=== PATIENT | male | born 1960 | race Caucasian/White ===

== ENCOUNTER 2019-12-07 05:23 | Emergency (ER) | payer MEDICAID, SELFPAY ==
[~2019-12-07] VITALS: Ht 180.3 cm; Wt 82.6 kg
--- NOTE | 2019-12-07 05:40 | NUR ---
PT REPORTS RIGHT ARM PAIN FOR X1 YEAR, REPORTS WORSENING PAIN. PT REPORTS HAVING TORN LIGAMENTS X1 YEAR AGO, HAS SHOULDER SURGERY. DENIES NECK OR CHEST PAIN, DENIES OTHER C/O AT THIS TIME. PT CONNECTED TO MONITORING, CALL LIGHT WITHIN REACH, ALL SAFETY MEASURES IN PLACE.
[2019-12-07] MEDS ORDERED: LISI-167 PO (05:47)
[2019-12-07] MEDS ORDERED: NAPR1TAB25 PO (05:47)
[2019-12-07] MEDS ORDERED: SIMV40TA3 PO (05:47)
[2019-12-07] MEDS ORDERED: INSU100V13 SC (05:47)
[2019-12-07] MEDS ORDERED: HYDROcodone/APAP 5/325 TABLET ONE ×2 (05:50→05:51)
[2019-12-07] MEDS ORDERED: KETOROLAC 30 MG/1 ML ONE (05:50)
--- NOTE | 2019-12-07 05:54 | NUR ---
PT TO IMAGING AT THIS TIME
[2019-12-07] MEDS ORDERED: KETOROLAC 30 MG/1 ML IM ONE (06:00)
[2019-12-07] MEDS ORDERED: HYDROcodone/APAP 5/325 TABLET PO ONE (06:00)
[2019-12-07 06:12] VITALS: BP 136/98
--- NOTE | 2019-12-07 06:51 | NUR ---
REPORT GIVEN TO LEIDY WHITTAKER.
== END 2019-12-07 07:34 | disposition home or self-care (01) ==
LOC: ED 07:28
DX: M25.511 Pain in right shoulder (principal); M25.521 Pain in right elbow; G89.29 Other chronic pain; J44.9 Chronic obstructive pulmonary disease, unspecified; E11.9 Type 2 diabetes mellitus without complications; Z87.891 Personal history of nicotine dependence
CPT/HCPCS: 73030; 73080; 96372; 99283; J1885

== ENCOUNTER 2020-10-08 16:53 | Emergency (ER) | payer MEDICAID ==
[~2020-10-08] VITALS: Ht 180.3 cm; Wt 67.9 kg
[~2020-10-08 16:53] MED LIST: INSU100V13 SC; LISI-167 PO; NAPR1TAB25 PO; SIMV40TA20 PO
[2020-10-08] MEDS ORDERED: SODIUM CHLORIDE FLUSH 10ML SYR IVF ONE (18:00)
[2020-10-08] MEDS ORDERED: SODIUM CHLORIDE 0.9% 1,000ML IVBOLUS ONE (18:00)
[2020-10-08 18:07] LABS: BASOPHILS % (AUTO) 1 % (0-1); EOSINOPHILS % (AUTO) 1 % (1-7); LYMPHOCYTES % (AUTO) 24 % (22-44); MEAN CORPUSCULAR HEMOGLOBIN 30.7 pg (27.5-34.5); MEAN CORPUSCULAR HGB CONC 34.4 g/dL (33.2-36.2); MEAN PLATELET VOLUME 8.9 fL (7.4-10.4); MONOCYTES % (AUTO) 12 % (2-9); NEUTROPHILS % (AUTO) 63 % (42-75); PLATELET COUNT 335 x10^3/uL (130-400); RED BLOOD COUNT 5.11 x10^6/uL (4.38-5.82); RED CELL DISTRIBUTION WIDTH 13.6 % (9.4-14.8)
[2020-10-08 18:09] LABS: MD NO
--- NOTE | 2020-10-08 18:13 | NUR ---
PT REPORTS HE IS A DIABETIC AND HAS NOT USED INSULIN FOR ABOUT 2 WEEKS, C/O BURNING SENSATION ON FINGERS. PT PLACED ON VITALS MONITORS. CALL LIGHT WITHIN REACH.
[2020-10-08 18:17] LABS: ANION GAP 5 mmol/L (5-15); CALCIUM 9.1 mg/dL (8.5-10.1); CHLORIDE 94 mmol/L (98-107); CREATININE 1.09 mg/dL (0.7-1.3)
[2020-10-08 18:27] LABS: MICROSCOPIC AUTO
[2020-10-08 18:45] VITALS: BP 110/77
--- NOTE | 2020-10-08 18:58 | NUR ---
REPORT TO KAYLA FORBES.
== END 2020-10-08 19:58 | disposition home or self-care (01) ==
LOC: ED 18:20
DX: R53.1 Weakness (principal); H53.9 Unspecified visual disturbance; I10 Essential (primary) hypertension; E11.65 Type 2 diabetes mellitus with hyperglycemia; Z59.0 Homelessness; Z91.14 Patient's other noncompliance with medication regimen
CPT/HCPCS: 36415; 80048; 81001; 82962; 85025; 99283

== ENCOUNTER 2021-02-24 02:06 | Inpatient (IN) | payer MEDICAID ==
[~2021-02-24] VITALS: Ht 177.8 cm; Wt 79.8 kg
--- NOTE | 2021-02-24 02:18 | NUR ---
EKG initially documented under incorrect user.
--- NOTE | 2021-02-24 02:19 | NUR ---
Patient BIBA from [facility] for unresponsiveness. Per EMS, it was reported that patient was there for approx 30 minutes and was "nodding off." Upon EMS arrival, patient was unarousable. BGL was 39. EMS admin D10 which increased the BGL to 120. Patient became responsive to pain. Rodrigo arrived at hospital; states patient has a hx of diabetes. He injects cocaine often; unsure of any other drugs. Denies alcohol use. Patient is responsive to pain only. Respirations even and unlabored.
--- NOTE | 2021-02-24 02:25 | NUR ---
Patient skin diaphoretic .
[2021-02-24 02:36] LABS: BASOPHILS % (AUTO) 1 % (0-1); EOSINOPHILS % (AUTO) 4 % (1-7); LYMPHOCYTES % (AUTO) 40 % (22-44); MEAN CORPUSCULAR HEMOGLOBIN 29.9 pg (27.5-34.5); MEAN CORPUSCULAR HGB CONC 33.4 g/dL (33.2-36.2); MEAN PLATELET VOLUME 7.6 fL (7.4-10.4); MONOCYTES % (AUTO) 11 % (2-9); NEUTROPHILS % (AUTO) 44 % (42-75); PLATELET COUNT 245 x10^3/uL (130-400); RED BLOOD COUNT 4.57 x10^6/uL (4.38-5.82); RED CELL DISTRIBUTION WIDTH 14.9 % (9.4-14.8)
[2021-02-24 02:48] LABS: ALANINE AMINOTRANSFERASE 96 U/L (12-78); ALBUMIN 3.5 g/dL (3.4-5.0); ANION GAP 5 mmol/L (5-15); CALCIUM 8.7 mg/dL (8.5-10.1); CHLORIDE 110 mmol/L (98-107); CREATININE 0.63 mg/dL (0.7-1.3)
[2021-02-24 02:52] LABS: ALKALINE PHOSPHATASE 80 U/L (45-117); BILIRUBIN,TOTAL 0.6 mg/dL (0.2-1.0); TROPONIN I < 0.015 ng/mL (0.000-0.045)
[2021-02-24] MEDS ORDERED: DEXTROSE 50%, 50ML SYRINGE ONE (02:56)
[2021-02-24 02:57] LABS: MD NO
[2021-02-24] MEDS ORDERED: DEXTROSE 50%, 50ML SYRINGE IVPush ONE (03:00)
--- NOTE | 2021-02-24 03:00 | NUR ---
Patient BS via labs was 53. Admin D50 per mar.
--- NOTE | 2021-02-24 03:48 | NUR ---
Straight cath performed; urine sent to lab. Patient skin improved. Diaphoresis resolved.
--- NOTE | 2021-02-24 03:55 | NUR ---
Vy Parekh -[facility] [phone]
[2021-02-24 04:16] LABS: MICROSCOPIC NOT IND
[2021-02-24 04:28] LABS: AMPHETAMINE SCREEN, URINE Positive (Negative); BARBITURATE SCREEN, URINE Negative (Negative); BENZODIAZEPINE SCREEN, URINE Negative (Negative); CANNABINOID SCREEN, URINE Negative (Negative); COCAINE SCREEN, URINE Negative (Negative); METHADONE SCREEN, URINE Negative (Negative); OPIATE SCREEN, URINE Negative (Negative)
--- NOTE | 2021-02-24 04:28 | NUR ---
Patient moves to painful and verbal stimuli but does not respond or open eyes. BGL continues to decrease.
[2021-02-24] MEDS ORDERED: ACETAMINOPHEN 325 MG TABLET PO PRN (04:30)
[2021-02-24] MEDS ORDERED: DEXTROSE 4 GM TAB.CHEW PO PRN (04:30)
[2021-02-24] MEDS ORDERED: DEXTROSE 50%, 50ML SYRINGE IVPush PRN (04:30)
[2021-02-24] MEDS ORDERED: D5%-0.45% NACL 500 ML IV SCH (04:30)
[2021-02-24] MEDS ORDERED: GLUCAGON 1 MG IM PRN (04:30)
[2021-02-24] MEDS ORDERED: ONDANSETRON ODT 4 MG PO PRN (04:30)
--- NOTE | 2021-02-24 05:56 | NUR ---
Report given to LEIDY Lorenz. Patient to be transferred to room 485.
[2021-02-24 06:19] VITALS: BP 125/83
[2021-02-24 08:51] VITALS: BP 133/87
[2021-02-24] MEDS ORDERED: FAMOTIDINE 20 MG TABLET PO SCH (09:00)
[2021-02-24] MEDS ORDERED: SODIUM CHLORIDE FLUSH 10ML SYR IVF SCH (09:00)
[2021-02-24 10:21] VITALS: BP 133/81
[2021-02-24] MEDS ORDERED: NICOTINE 14MG/24 HR PATCH.TD24 TD SCH (11:30)
[2021-02-24] MEDS ORDERED: D5%-0.45% NACL 1,000 ML IV SCH (12:00)
[2021-02-24 13:59] VITALS: BP 131/79
[2021-02-24] MEDS ORDERED: OLAN10TA9 PO (15:02)
[2021-02-24] MEDS ORDERED: MELO15TA24 PO (15:06)
[2021-02-24] MEDS ORDERED: GABA-827 PO (15:06)
[2021-02-24] MEDS ORDERED: APIX5TAB PO (15:06)
[2021-02-24] MEDS ORDERED: GABAPENTIN 400 MG CAPSULE PO SCH (16:00)
[2021-02-24] MEDS ORDERED: APIXABAN 5 MG TABLET PO SCH (21:00)
[2021-02-24] MEDS ORDERED: SIMVASTATIN 40 MG TABLET PO SCH (21:00)
[2021-02-24] MEDS ORDERED: OLANZAPINE 10 MG TABLET PO SCH (21:00)
[2021-02-25] MEDS ORDERED: LISINOPRIL 40 MG TABLET PO SCH (09:00)
== END 2021-02-24 18:29 | disposition home or self-care (01) | DRG 93 ==
LOC: ED 02:36 → SUATTDRO 04:15 → EDIP 04:15 → 4EST 06:08
PROVIDERS: ATTEND Hospitalist
PROC: 0T9B70Z Drainage of Bladder with Drainage Device, Via Natural or Artificial Opening (ICD-10-PCS; principal; 2021-02-24)
DX: G92 Toxic encephalopathy (principal); E11.649 Type 2 diabetes mellitus with hypoglycemia without coma; E78.5 Hyperlipidemia, unspecified; F14.10 Cocaine abuse, uncomplicated; F15.10 Other stimulant abuse, uncomplicated; I10 Essential (primary) hypertension; J44.9 Chronic obstructive pulmonary disease, unspecified; Z63.8 Other specified problems related to primary support group; Z79.01 Long term (current) use of anticoagulants
CPT/HCPCS: 36415; 80053; 80307; 80320; 81003; 82962; 83036; 84484; 85025; 93005; G0378; G0480

== ENCOUNTER 2021-03-24 18:27 | Emergency (ER) | payer MEDICAID ==
[~2021-03-24] VITALS: Ht 177.8 cm; Wt 82.0 kg
[~2021-03-24 18:27] MED LIST changes: +APIX5TAB PO; +GABA-827 PO; +MELO15TA24 PO; +OLAN10TA9 PO
[2021-03-24 19:14] LABS: BASOPHILS % (AUTO) 1 % (0-1); EOSINOPHILS % (AUTO) 1 % (1-7); LYMPHOCYTES % (AUTO) 17 % (22-44); MEAN CORPUSCULAR HEMOGLOBIN 29.6 pg (27.5-34.5); MEAN CORPUSCULAR HGB CONC 33.9 g/dL (33.2-36.2); MONOCYTES % (AUTO) 9 % (2-9); NEUTROPHILS % (AUTO) 72 % (42-75); PLATELET COUNT 249 x10^3/uL (130-400); RED BLOOD COUNT 5.16 x10^6/uL (4.38-5.82); RED CELL DISTRIBUTION WIDTH 14.7 % (9.4-14.8)
[2021-03-24 19:20] LABS: ALBUMIN 3.3 g/dL (3.4-5.0); ANION GAP 7 mmol/L (5-15); CALCIUM 8.5 mg/dL (8.5-10.1); CHLORIDE 106 mmol/L (98-107)
[2021-03-24 19:22] LABS: CREATININE 0.69 mg/dL (0.7-1.3)
[2021-03-24 19:36] LABS: MD SCAN
[2021-03-24 20:19] VITALS: BP 144/100
--- NOTE | 2021-03-24 20:20 | NUR ---
PT AMBULTED TO ROOM FROM LOBBY. PT CO PAIN IN BILATERAL HANDS AND FEET R/T NEUROPATHY. PT STATED THAT HE "LOST" HIS INSULIN AND HIS GABAPENTIN THIS WEEK. PT HAS WOUND ON LEFT THUMB THAT REQUIRED SURGERY IN DECEMBER AND CO SEVERE PAIN. REDNESS AND SWELLING NOTED TO LEFT FOREARM AND LEFT FOOT. PT DENIES ANY FEVER, N/V/D, CP OR SOB.
[2021-03-24] MEDS ORDERED: DOXYCYCLINE 100MG TABLET PO ONE (20:30)
[2021-03-24] MEDS ORDERED: NAPROXEN 500 MG TABLET PO ONE (20:30)
[2021-03-24] MEDS ORDERED: NAPROXEN 500 MG TABLET ONE (20:31)
[2021-03-24] MEDS ORDERED: DOXYCYCLINE 100MG TABLET ONE (20:32)
[2021-03-24] MEDS ORDERED: NEOSPORIN OINT. PKT 1 PACKET ONE (21:26)
== END 2021-03-24 21:49 | disposition home or self-care (01) ==
LOC: ED 18:57
DX: L03.012 Cellulitis of left finger (principal); R00.0 Tachycardia, unspecified; I10 Essential (primary) hypertension; E11.9 Type 2 diabetes mellitus without complications; J44.9 Chronic obstructive pulmonary disease, unspecified; F17.200 Nicotine dependence, unspecified, uncomplicated
CPT/HCPCS: 36415; 80048; 82040; 85025; 93005; 99285

== ENCOUNTER 2021-04-09 02:11 | Emergency (ER) | payer MEDICAID ==
[~2021-04-09] VITALS: Ht 177.8 cm; Wt 80.1 kg
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
[2021-04-09 02:54] LABS: BASOPHILS % (AUTO) 1 % (0-1); EOSINOPHILS % (AUTO) 4 % (1-7); LYMPHOCYTES % (AUTO) 30 % (22-44); MEAN CORPUSCULAR HEMOGLOBIN 29.7 pg (27.5-34.5); MEAN PLATELET VOLUME 7.3 fL (7.4-10.4); MONOCYTES % (AUTO) 9 % (2-9); NEUTROPHILS % (AUTO) 56 % (42-75); PLATELET COUNT 380 x10^3/uL (130-400); RED BLOOD COUNT 5.03 x10^6/uL (4.38-5.82); RED CELL DISTRIBUTION WIDTH 14.9 % (9.4-14.8)
[2021-04-09 02:55] LABS: MD NO
--- NOTE | 2021-04-09 03:03 | NUR ---
REPORT TO CHARMAINE ROMEO RN
[2021-04-09 03:04] LABS: SALICYLATE LEVEL < 1.7 mg/dL (2.8-20.0)
--- NOTE | 2021-04-09 03:25 | NUR ---
report from maria del carmen. pt resting on [facility]. room secured. sitter at doorway for frequent monitoring. pt made aware of need for urine.
[2021-04-09 04:50] LABS: AMPHETAMINE SCREEN, URINE Positive (Negative); BARBITURATE SCREEN, URINE Negative (Negative); BENZODIAZEPINE SCREEN, URINE Negative (Negative); CANNABINOID SCREEN, URINE Positive (Negative); COCAINE SCREEN, URINE Negative (Negative); METHADONE SCREEN, URINE Negative (Negative); OPIATE SCREEN, URINE Negative (Negative)
--- NOTE | 2021-04-09 05:12 | NUR ---
PT RESTING ON GURNEY. RESPIRATIONS EVEN AND UNLABORED. PT SLEEPING/WATCHING TV. SITTER AT DOORWAY FOR FREQUENT CHECKS.
[2021-04-09 05:38] LABS: ALANINE AMINOTRANSFERASE 90 U/L (12-78); ALBUMIN 3.3 g/dL (3.4-5.0); ANION GAP 11 mmol/L (5-15); CALCIUM 8.8 mg/dL (8.5-10.1); CHLORIDE 106 mmol/L (98-107)
[2021-04-09 05:40] LABS: ALKALINE PHOSPHATASE 76 U/L (45-117); BILIRUBIN,TOTAL 0.5 mg/dL (0.2-1.0); TOTAL PROTEIN 7.2 g/dL (6.4-8.2)
--- NOTE | 2021-04-09 06:54 | NUR ---
REPORT TO LEIDY ARMSTRONG
--- NOTE | 2021-04-09 07:09 | NUR ---
REPORT FROM JOHNY, ASSUME CARE OF PT. PT RESTING QUIETLY, NAD. SITTER AT DOORWAY.
--- NOTE | 2021-04-09 08:23 | NUR ---
BREAKFAST TRAY PROVIDED. SITTER AT DOORWAY. CONTINUE TO AWAIT TELEPSYCH ASSESSMENT.
--- NOTE | 2021-04-09 09:25 | NUR ---
PT SLEEPING, NAD, SITTER AT DOORWAY.
--- NOTE | 2021-04-09 09:52 | NUR ---
PSYCH PROGRAM TECHNICIAN TO SEE.
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
[2021-04-09] MEDS ORDERED: GABA600T7 PO (10:52)
[2021-04-09] MEDS ORDERED: INSU100C SQ-INSULIN (10:52)
[2021-04-09] MEDS ORDERED: CEPH-376 PO (10:52)
[2021-04-09] MEDS ORDERED: INSU100V8 SQ (10:52)
[2021-04-09] MEDS ORDERED: OLANZAPINE 5 MG TABLET PO SCH (11:00)
[2021-04-09] MEDS ORDERED: NICOTINE 14MG/24 HR PATCH.TD24 TD PRN (11:00)
[2021-04-09] MEDS ORDERED: NICOTINE 14MG/24 HR PATCH.TD24 ONE (11:16)
[2021-04-09] MEDS ORDERED: OLANZAPINE 5 MG TABLET ONE (11:16)
--- NOTE | 2021-04-09 11:22 | NUR ---
MEDS GIVEN PER EMAR. PT BACK TO SLEEP, NAD, SITTER AT DOORWAY
[2021-04-09] MEDS ORDERED: INSULIN GLARGINE 100 UNITS/ML, PEN SQ-INSULIN SCH (11:30)
--- NOTE | 2021-04-09 12:40 | NUR ---
ANEUDY CEBALLOS WALKED TO LAB.
--- NOTE | 2021-04-09 12:51 | NUR ---
FS 151, MEAL TRAY PROVIDED. PT STATES HE HAS BEEN OFF INSULIN FOR MONTHS. INSULIN PEN ORDERED FROM PHARMACY. SITTER AT DOORWAY.
--- NOTE | 2021-04-09 12:58 | NUR ---
INSULIN PEN NOT REQUESTED FROM PHARM AFTER REVIEW OF ORDER. LANTUS TO BE TAKEN AT HS. HUMALOG 5 UNITS TO BE TAKEN AC.
--- NOTE | 2021-04-09 13:32 | NUR ---
PT RESTING CALMLY IN BED AT THIS TIME. SITTER AT DOOR FOR FREQUENT OBS.
--- NOTE | 2021-04-09 14:48 | NUR ---
REPORT GIVEN TO MISAEL FORBES FOR ROOM 380. INTERACTIVE DIGITAL MEDIA SPECIALIST OUTSIDE DOOR. PT RESTING CALMLY IN BED.
[2021-04-09 14:58] VITALS: BP 130/89
[2021-04-09] MEDS ORDERED: INSULIN LISPRO 100 UNITS/ML, PEN SQ-INSULIN SCH (16:00)
[2021-04-09] MEDS ORDERED: CEPHALEXIN 500 MG CAPSULE PO SCH (16:00)
[2021-04-09] MEDS ORDERED: GABAPENTIN 400 MG CAPSULE PO SCH (16:00)
== END 2021-04-09 15:00 ==
LOC: ED 03:51
DX: R45.851 Suicidal ideations (principal); F32.1 Major depressive disorder, single episode, moderate; F12.10 Cannabis abuse, uncomplicated; F15.10 Other stimulant abuse, uncomplicated; Z20.822 Contact with and (suspected) exposure to COVID-19; J44.9 Chronic obstructive pulmonary disease, unspecified; E11.65 Type 2 diabetes mellitus with hyperglycemia; I10 Essential (primary) hypertension; F17.210 Nicotine dependence, cigarettes, uncomplicated
CPT/HCPCS: 36415; 80053; 80299; 80307; 80320; 80329; 82962; 85025; 87426; 99285; G0480

== ENCOUNTER 2021-04-09 13:44 | Inpatient (IN) | payer MEDICAID ==
[~2021-04-09] VITALS: Ht 177.8 cm; Wt 75.5 kg
[~2021-04-09 13:44] MED LIST changes: +CEPH-376 PO; +GABA600T7 PO; +INSU100C SQ-INSULIN; +INSU100V8 SQ
[2021-04-09] MEDS ORDERED: BISACODYL 10 MG SUPP PR PRN (15:30)
[2021-04-09] MEDS ORDERED: DOCUSATE 100 MG CAPSULE PO PRN (15:30)
[2021-04-09] MEDS ORDERED: POLYETHYLENE GLYCOL 17 GM PACKET PO PRN (15:30)
[2021-04-09 16:00] VITALS: BP 117/75
[2021-04-09] MEDS: INSULIN LISPRO 100 UNITS/ML, PEN SQ-INSULIN SCH ×2 (19:00→20:23)
[2021-04-09] MEDS: INSULIN GLARGINE 100 UNITS/ML, PEN SQ-INSULIN SCH ×2 (19:00→21:00)
[2021-04-09 19:22] LABS: MICROSCOPIC NOT IND
[2021-04-09 19:27] VITALS: BP 120/75
[2021-04-09] MEDS: CEPHALEXIN 500 MG CAPSULE PO SCH (20:28)
[2021-04-09] MEDS: GABAPENTIN 400 MG CAPSULE PO SCH (20:28)
[2021-04-10] MEDS: CEPHALEXIN 500 MG CAPSULE PO SCH ×2 (05:37→11:27)
[2021-04-10 06:17] LABS: CHOL/HDL RATIO 4.1; FREE T4 (FREE THYROXINE) 1.18 ng/dL (0.76-1.46); LDL/HDL RATIO 2.7 (0.5-3.0)
[2021-04-10 07:24] VITALS: BP 119/74
[2021-04-10] MEDS: INSULIN LISPRO 100 UNITS/ML, PEN SQ-INSULIN SCH ×7 (08:00→21:00)
[2021-04-10] MEDS: NICOTINE 7 MG/24 HR PATCH.TD24 TD SCH (08:01)
[2021-04-10] MEDS: GABAPENTIN 400 MG CAPSULE PO SCH ×3 (08:01→21:02)
[2021-04-10] MEDS: ACETAMINOPHEN 325 MG TABLET PO PRN (11:27)
[2021-04-10] MEDS: AMOXICILLIN/CLAV 875-125MG TABLET PO SCH ×2 (12:27→21:02)
[2021-04-10] MEDS: DULOXETINE 30 MG CAPSULE.DR PO SCH (16:26)
[2021-04-10 19:35] VITALS: BP 124/81
[2021-04-10] MEDS ORDERED: TRAZODONE 50MG TABLET PO PRN (21:00)
[2021-04-10] MEDS: INSULIN GLARGINE 100 UNITS/ML, PEN SQ-INSULIN SCH (21:05)
[2021-04-11 07:28] VITALS: BP 121/77
[2021-04-11] MEDS: INSULIN LISPRO 100 UNITS/ML, PEN SQ-INSULIN SCH ×7 (07:51→21:00)
[2021-04-11] MEDS: NICOTINE 7 MG/24 HR PATCH.TD24 TD SCH (07:53)
[2021-04-11] MEDS: ONDANSETRON ODT 4 MG PO PRN (07:56)
[2021-04-11] MEDS: DULOXETINE 30 MG CAPSULE.DR PO SCH ×2 (08:52→20:20)
[2021-04-11] MEDS: ACETAMINOPHEN 325 MG TABLET PO PRN (08:52)
[2021-04-11] MEDS: GABAPENTIN 400 MG CAPSULE PO SCH ×3 (08:53→20:20)
[2021-04-11] MEDS: AMOXICILLIN/CLAV 875-125MG TABLET PO SCH ×2 (08:53→20:20)
[2021-04-11 19:24] VITALS: BP 117/72
[2021-04-11] MEDS: INSULIN GLARGINE 100 UNITS/ML, PEN SQ-INSULIN SCH (20:21)
[2021-04-11] MEDS: HYDROXYZINE PAMOATE 50MG CAP PO PRN (20:29)
[2021-04-12] MEDS: INSULIN LISPRO 100 UNITS/ML, PEN SQ-INSULIN SCH ×7 (07:00→20:06)
[2021-04-12 07:17] VITALS: BP 113/74
[2021-04-12] MEDS: AMOXICILLIN/CLAV 875-125MG TABLET PO SCH ×2 (08:28→20:04)
[2021-04-12] MEDS: ACETAMINOPHEN 325 MG TABLET PO PRN ×2 (08:28→20:04)
[2021-04-12] MEDS: DULOXETINE 30 MG CAPSULE.DR PO SCH ×2 (08:28→20:04)
[2021-04-12] MEDS: GABAPENTIN 400 MG CAPSULE PO SCH ×3 (08:28→20:04)
[2021-04-12] MEDS: HYDROXYZINE PAMOATE 50MG CAP PO PRN (08:28)
[2021-04-12] MEDS: NICOTINE 7 MG/24 HR PATCH.TD24 TD SCH (08:29)
[2021-04-12] MEDS: CARIPRAZINE 1.5 MG CAP PO SCH (14:44)
[2021-04-12] MEDS: LORazepam 0.5MG TABLET PO PRN (14:45)
[2021-04-12 19:15] VITALS: BP 115/74
[2021-04-12] MEDS ORDERED: GABAPENTIN 100 MG CAPSULE ONE (19:59)
[2021-04-12] MEDS: INSULIN GLARGINE 100 UNITS/ML, PEN SQ-INSULIN SCH (20:06)
[2021-04-13] MEDS: ONDANSETRON ODT 4 MG PO PRN (04:59)
[2021-04-13] MEDS: LORazepam 0.5MG TABLET PO PRN ×2 (04:59→16:37)
[2021-04-13 07:16] VITALS: BP 134/87
[2021-04-13] MEDS: DULOXETINE 30 MG CAPSULE.DR PO SCH ×2 (08:05→21:31)
[2021-04-13] MEDS: ACETAMINOPHEN 325 MG TABLET PO PRN (08:05)
[2021-04-13] MEDS: GABAPENTIN 400 MG CAPSULE PO SCH ×3 (08:05→21:30)
[2021-04-13] MEDS: NICOTINE 7 MG/24 HR PATCH.TD24 TD SCH (08:05)
[2021-04-13] MEDS: AMOXICILLIN/CLAV 875-125MG TABLET PO SCH ×2 (08:05→21:30)
[2021-04-13] MEDS: INSULIN LISPRO 100 UNITS/ML, PEN SQ-INSULIN SCH ×7 (08:06→21:25)
[2021-04-13] MEDS: CARIPRAZINE 1.5 MG CAP PO SCH (08:06)
[2021-04-13 19:51] VITALS: BP 120/72
[2021-04-13] MEDS: INSULIN GLARGINE 100 UNITS/ML, PEN SQ-INSULIN SCH (21:26)
[2021-04-13] MEDS: TRAZODONE 100MG TABLET PO SCH (21:31)
[2021-04-14 07:11] VITALS: BP 119/83
[2021-04-14] MEDS: ACETAMINOPHEN 325 MG TABLET PO PRN (08:06)
[2021-04-14] MEDS: AMOXICILLIN/CLAV 875-125MG TABLET PO SCH ×2 (08:06→20:22)
[2021-04-14] MEDS: GABAPENTIN 400 MG CAPSULE PO SCH ×3 (08:07→20:23)
[2021-04-14] MEDS: DULOXETINE 30 MG CAPSULE.DR PO SCH ×2 (08:07→20:22)
[2021-04-14] MEDS: CARIPRAZINE 1.5 MG CAP PO SCH (08:07)
[2021-04-14] MEDS: INSULIN LISPRO 100 UNITS/ML, PEN SQ-INSULIN SCH ×7 (08:07→20:19)
[2021-04-14] MEDS: NICOTINE 7 MG/24 HR PATCH.TD24 TD SCH (08:08)
[2021-04-14] MEDS: LORazepam 0.5MG TABLET PO PRN (15:55)
[2021-04-14 19:25] VITALS: BP 120/80
[2021-04-14] MEDS: INSULIN GLARGINE 100 UNITS/ML, PEN SQ-INSULIN SCH (20:20)
[2021-04-14] MEDS: TRAZODONE 100MG TABLET PO SCH (20:22)
[2021-04-15] MEDS: INSULIN LISPRO 100 UNITS/ML, PEN SQ-INSULIN SCH ×7 (07:00→20:05)
[2021-04-15 07:44] VITALS: BP 117/78
[2021-04-15] MEDS: DULOXETINE 30 MG CAPSULE.DR PO SCH ×2 (08:04→20:03)
[2021-04-15] MEDS: AMOXICILLIN/CLAV 875-125MG TABLET PO SCH ×2 (08:04→20:03)
[2021-04-15] MEDS: GABAPENTIN 400 MG CAPSULE PO SCH ×3 (08:04→20:04)
[2021-04-15] MEDS: NICOTINE 7 MG/24 HR PATCH.TD24 TD SCH (08:04)
[2021-04-15] MEDS: LORazepam 0.5MG TABLET PO PRN ×2 (08:07→17:53)
[2021-04-15] MEDS: CARIPRAZINE 1.5 MG CAP PO SCH (09:30)
[2021-04-15] MEDS: HYDROXYZINE PAMOATE 50MG CAP PO PRN (14:24)
[2021-04-15] MEDS: INSULIN GLARGINE 100 UNITS/ML, PEN SQ-INSULIN SCH (20:04)
[2021-04-15 20:08] VITALS: BP 127/86
[2021-04-15] MEDS ORDERED: DOXEPIN 25 MG CAPSULE PO SCH (21:00)
[2021-04-16 07:33] VITALS: BP 130/88
[2021-04-16] MEDS: INSULIN LISPRO 100 UNITS/ML, PEN SQ-INSULIN SCH ×7 (07:57→19:59)
[2021-04-16] MEDS: NICOTINE 7 MG/24 HR PATCH.TD24 TD SCH (07:58)
[2021-04-16] MEDS: DULOXETINE 30 MG CAPSULE.DR PO SCH ×2 (07:58→19:58)
[2021-04-16] MEDS: GABAPENTIN 400 MG CAPSULE PO SCH ×3 (07:58→19:58)
[2021-04-16] MEDS: AMOXICILLIN/CLAV 875-125MG TABLET PO SCH ×2 (07:58→19:58)
[2021-04-16] MEDS: CARIPRAZINE 1.5 MG CAP PO SCH (08:04)
[2021-04-16] MEDS: HYDROXYZINE PAMOATE 50MG CAP PO PRN (12:13)
[2021-04-16] MEDS: LORazepam 0.5MG TABLET PO PRN (15:31)
[2021-04-16 19:38] VITALS: BP 120/80
[2021-04-16] MEDS: INSULIN GLARGINE 100 UNITS/ML, PEN SQ-INSULIN SCH (19:59)
[2021-04-16] MEDS: DOXEPIN 100 MG CAPSULE PO SCH (20:09)
[2021-04-17 07:24] VITALS: BP 114/81
[2021-04-17] MEDS: INSULIN LISPRO 100 UNITS/ML, PEN SQ-INSULIN SCH ×7 (08:17→20:40)
[2021-04-17] MEDS: DULOXETINE 30 MG CAPSULE.DR PO SCH ×2 (08:20→20:38)
[2021-04-17] MEDS: GABAPENTIN 400 MG CAPSULE PO SCH ×3 (08:20→20:38)
[2021-04-17] MEDS: NICOTINE 7 MG/24 HR PATCH.TD24 TD SCH (08:21)
[2021-04-17] MEDS: CARIPRAZINE 1.5 MG CAP PO SCH (08:21)
[2021-04-17] MEDS: LORazepam 0.5MG TABLET PO PRN (10:53)
[2021-04-17] MEDS: HYDROXYZINE PAMOATE 50MG CAP PO PRN (14:14)
[2021-04-17] MEDS ORDERED: LORazepam 1MG TABLET PO PRN (18:00)
[2021-04-17 19:11] VITALS: BP 129/83
[2021-04-17] MEDS: DOXEPIN 100 MG CAPSULE PO SCH (20:38)
[2021-04-17] MEDS: INSULIN GLARGINE 100 UNITS/ML, PEN SQ-INSULIN SCH (20:40)
[2021-04-18] MEDS: INSULIN LISPRO 100 UNITS/ML, PEN SQ-INSULIN SCH ×4 (07:00→11:48)
[2021-04-18 07:29] VITALS: BP 112/74
[2021-04-18] MEDS: CARIPRAZINE 1.5 MG CAP PO SCH (08:30)
[2021-04-18] MEDS: DULOXETINE 30 MG CAPSULE.DR PO SCH (08:30)
[2021-04-18] MEDS: NICOTINE 7 MG/24 HR PATCH.TD24 TD SCH (08:30)
[2021-04-18] MEDS: GABAPENTIN 400 MG CAPSULE PO SCH ×2 (08:30→15:17)
[2021-04-18] MEDS ORDERED: CARI1.5C2 PO (14:40)
[2021-04-18] MEDS ORDERED: DOXE100C PO (14:40)
[2021-04-18] MEDS ORDERED: INSU100I13 SQ-INSULIN (14:40)
[2021-04-18] MEDS ORDERED: INSU100I11 SQ-INSULIN ×2 (14:40)
[2021-04-18] MEDS ORDERED: NICO-485 TD (14:40)
[2021-04-18] MEDS ORDERED: HYDR50CA2 PO (14:40)
[2021-04-18] MEDS ORDERED: DULO30CA2 PO (14:40)
[2021-04-18] MEDS ORDERED: GABA-827 PO (14:40)
[2021-04-18] MEDS: ACETAMINOPHEN 325 MG TABLET PO PRN (15:17)
== END 2021-04-18 15:44 | disposition home or self-care (01) | DRG 885 ==
LOC: 3E 15:26
PROVIDERS: ADMIT Psychiatry & Neurology Psychosomatic Medicine; ATTEND Psychiatry & Neurology Psychosomatic Medicine
DX: F25.1 Schizoaffective disorder, depressive type (principal); F11.20 Opioid dependence, uncomplicated; F15.20 Other stimulant dependence, uncomplicated; E11.9 Type 2 diabetes mellitus without complications; E78.5 Hyperlipidemia, unspecified; F10.10 Alcohol abuse, uncomplicated; F41.9 Anxiety disorder, unspecified; G47.00 Insomnia, unspecified; G89.29 Other chronic pain; I10 Essential (primary) hypertension; F17.210 Nicotine dependence, cigarettes, uncomplicated; J44.9 Chronic obstructive pulmonary disease, unspecified; Z59.0 Homelessness; Z79.01 Long term (current) use of anticoagulants; Z79.4 Long term (current) use of insulin; Z79.899 Other long term (current) drug therapy; Z91.19 Patient's noncompliance with other medical treatment and regimen
CPT/HCPCS: 80061; 81003; 82140; 82962; 83036; 84439; 84443; 93005; Q0162; J1815

== ENCOUNTER 2021-04-20 05:15 | Emergency (ER) | payer MEDICAID ==
[~2021-04-20] VITALS: Ht 177.8 cm; Wt 76.0 kg
[~2021-04-20 05:15] MED LIST changes: +CARI1.5C2 PO; +DOXE100C PO; +DULO30CA2 PO; +HYDR50CA2 PO; +INSU100I11 SQ-INSULIN; +INSU100I13 SQ-INSULIN; +NICO-485 TD
[2021-04-20 06:03] LABS: BASOPHILS % (AUTO) 1 % (0-1); EOSINOPHILS % (AUTO) 0 % (1-7); LYMPHOCYTES % (AUTO) 26 % (22-44); MEAN CORPUSCULAR HGB CONC 34.2 g/dL (33.2-36.2); MEAN PLATELET VOLUME 7.9 fL (7.4-10.4); MONOCYTES % (AUTO) 10 % (2-9); NEUTROPHILS % (AUTO) 64 % (42-75); PLATELET COUNT 361 x10^3/uL (130-400); RED BLOOD COUNT 5.74 x10^6/uL (4.38-5.82); RED CELL DISTRIBUTION WIDTH 14.6 % (9.4-14.8)
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
[2021-04-20 06:10] LABS: ALANINE AMINOTRANSFERASE 163 U/L (12-78); ALBUMIN 4.1 g/dL (3.4-5.0); ANION GAP 14 mmol/L (5-15); CALCIUM 9.6 mg/dL (8.5-10.1); CHLORIDE 103 mmol/L (98-107); CREATININE 0.82 mg/dL (0.7-1.3)
[2021-04-20 06:12] LABS: ALKALINE PHOSPHATASE 110 U/L (45-117); BILIRUBIN,TOTAL 0.9 mg/dL (0.2-1.0); TOTAL PROTEIN 8.9 g/dL (6.4-8.2)
[2021-04-20 06:15] LABS: SALICYLATE LEVEL < 1.7 mg/dL (2.8-20.0)
--- NOTE | 2021-04-20 06:23 | NUR ---
PT AMBULATED TO BATHROOM AND BACK TO ROOM. TOLERATED WELL. RESTING IN BED AND WATCHING TV.
[2021-04-20 06:27] LABS: AMPHETAMINE SCREEN, URINE Positive (Negative); BARBITURATE SCREEN, URINE Negative (Negative); BENZODIAZEPINE SCREEN, URINE Negative (Negative); CANNABINOID SCREEN, URINE Negative (Negative); COCAINE SCREEN, URINE Negative (Negative); METHADONE SCREEN, URINE Negative (Negative); OPIATE SCREEN, URINE Negative (Negative)
--- NOTE | 2021-04-20 06:55 | NUR ---
GAVE REPORT TO TERRELL FORBES
--- NOTE | 2021-04-20 06:58 | NUR ---
I AM ASSUMING CARE OF THIS PT FROM [place] (LEIDY) AT THIS TIME. SBAR WAS EXCHANGED AT THE BEDSIDE.
--- NOTE | 2021-04-20 07:12 | NUR ---
PT SLEEPING SONOROUSLY ON AN [employer]. THERE IS NO CURRENT DISTRESS NOTED HE IS AWAITING A CONSULT FROM A PSYCHIATRIC NURSE PRACTITIONER. I WILL ORDER A BREAKFAST UPON AWAKENING.
--- NOTE | 2021-04-20 08:19 | NUR ---
BREAK RN: GIVEN BREAKFAST.
--- NOTE | 2021-04-20 08:52 | NUR ---
ASHLEY APPRECIATED. PT RESTING ON THE SIDE OF AM Daniel MELGAR WHILE AWAITING PSYCHIATRIC EVALUATION.
[2021-04-20 08:53] VITALS: BP 143/88
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
--- NOTE | 2021-04-20 10:49 | NUR ---
psychiatric nurse practicioner is at the bedside for assessment
[2021-04-20] MEDS ORDERED: DULOXETINE 30 MG CAPSULE.DR PO ONE (11:00)
[2021-04-20] MEDS ORDERED: CARIPRAZINE 3 MG CAP PO ONE (11:00)
[2021-04-20] MEDS ORDERED: GABAPENTIN 300 MG CAPSULE PO ONE ×2 (11:00→12:30)
[2021-04-20] MEDS ORDERED: GABAPENTIN 400 MG CAPSULE ONE (12:25)
[2021-04-20] MEDS ORDERED: GABAPENTIN 400 MG CAPSULE PO ONE (12:30)
== END 2021-04-20 13:09 | disposition home or self-care (01) ==
LOC: ED 05:45
DX: R45.851 Suicidal ideations (principal); F32.9 Major depressive disorder, single episode, unspecified; S90.412A Abrasion, left great toe, initial encounter; R00.0 Tachycardia, unspecified; I10 Essential (primary) hypertension; E11.65 Type 2 diabetes mellitus with hyperglycemia; J44.9 Chronic obstructive pulmonary disease, unspecified; F17.200 Nicotine dependence, unspecified, uncomplicated; Z59.0 Homelessness; X58.XXXA Exposure to other specified factors, initial encounter; Y93.89 Activity, other specified; Y92.89 Other specified places as the place of occurrence of the external cause; Y99.8 Other external cause status
CPT/HCPCS: 36415; 80053; 80299; 80307; 80320; 80329; 85025; 93005; 99284; G0480

== ENCOUNTER 2021-04-21 19:26 | Emergency (ER) | payer MEDICAID ==
[~2021-04-21] VITALS: Ht 177.8 cm; Wt 75.0 kg
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
[2021-04-21] MEDS ORDERED: HYDROcodone/APAP 5/325 TABLET ONE (19:49)
[2021-04-21] MEDS ORDERED: HYDROcodone/APAP 5/325 TABLET PO PRN (20:00)
[2021-04-21 21:12] VITALS: BP 132/75
== END 2021-04-21 21:15 | disposition home or self-care (01) ==
LOC: ED 21:00
DX: S40.012A Contusion of left shoulder, initial encounter (principal); S70.02XA Contusion of left hip, initial encounter; S40.022A Contusion of left upper arm, initial encounter; I10 Essential (primary) hypertension; E11.9 Type 2 diabetes mellitus without complications; J44.9 Chronic obstructive pulmonary disease, unspecified; W01.0XXA Fall on same level from slipping, tripping and stumbling without subsequent striking against object, initial encounter; Y93.89 Activity, other specified; Y92.410 Unspecified street and highway as the place of occurrence of the external cause; Y99.8 Other external cause status
CPT/HCPCS: 99284

== ENCOUNTER 2021-05-25 18:37 | Emergency (ER) | payer MEDICAID ==
[~2021-05-25] VITALS: Ht 177.8 cm; Wt 79.9 kg
[2021-05-25 18:50] VITALS: BP 140/77
[2021-05-25 19:31] LABS: BASOPHILS % (AUTO) 1 % (0-1); EOSINOPHILS % (AUTO) 3 % (1-7); LYMPHOCYTES % (AUTO) 31 % (22-44); MEAN CORPUSCULAR HGB CONC 33.9 g/dL (33.2-36.2); MEAN PLATELET VOLUME 7.6 fL (7.4-10.4); MONOCYTES % (AUTO) 8 % (2-9); NEUTROPHILS % (AUTO) 57 % (42-75); PLATELET COUNT 307 x10^3/uL (130-400); RED BLOOD COUNT 4.81 x10^6/uL (4.38-5.82); RED CELL DISTRIBUTION WIDTH 14.3 % (9.4-14.8)
[2021-05-25 19:43] LABS: ALANINE AMINOTRANSFERASE 43 U/L (12-78); ANION GAP 5 mmol/L (5-15); CALCIUM 8.3 mg/dL (8.5-10.1); CHLORIDE 109 mmol/L (98-107)
[2021-05-25 19:45] LABS: ALKALINE PHOSPHATASE 79 U/L (45-117); BILIRUBIN,TOTAL 0.2 mg/dL (0.2-1.0); CREATININE 0.68 mg/dL (0.7-1.3); TOTAL PROTEIN 6.7 g/dL (6.4-8.2)
[2021-05-25 19:54] LABS: SALICYLATE LEVEL < 1.7 mg/dL (2.8-20.0)
--- NOTE | 2021-05-25 20:00 | NUR ---
Pt provided with dinner.
[2021-05-25 20:15] LABS: AMPHETAMINE SCREEN, URINE Positive (Negative); BARBITURATE SCREEN, URINE Negative (Negative); BENZODIAZEPINE SCREEN, URINE Negative (Negative); CANNABINOID SCREEN, URINE Positive (Negative); COCAINE SCREEN, URINE Negative (Negative); METHADONE SCREEN, URINE Negative (Negative); OPIATE SCREEN, URINE Negative (Negative)
--- NOTE | 2021-05-25 21:00 | NUR ---
Pt sleeping, respirations even and unlabored, in view of sitter.
--- NOTE | 2021-05-25 23:58 | NUR ---
Pt d/c'd with all of belongings (1 of 1 labeled bag).
== END 2021-05-26 00:28 ==
LOC: ED 20:20 → UNDOADMIN 22:00 → 3E 22:00 → ED 05-26 00:28
DX: R45.851 Suicidal ideations (principal); Z20.822 Contact with and (suspected) exposure to COVID-19; F33.9 Major depressive disorder, recurrent, unspecified; F15.150 Other stimulant abuse with stimulant-induced psychotic disorder with delusions; F17.210 Nicotine dependence, cigarettes, uncomplicated; F12.20 Cannabis dependence, uncomplicated; Z72.9 Problem related to lifestyle, unspecified; E11.9 Type 2 diabetes mellitus without complications; J44.9 Chronic obstructive pulmonary disease, unspecified; I10 Essential (primary) hypertension
CPT/HCPCS: 36415; 80053; 80299; 80307; 80320; 80329; 82962; 85025; 87426; 99285; 99406; G0480

== ENCOUNTER 2021-05-25 23:37 | Inpatient (IN) | payer MEDICAID ==
[~2021-05-25] VITALS: Ht 177.8 cm; Wt 79.7 kg
[~2021-05-25 23:37] MED LIST changes: +OLAN10TA69 PO; -OLAN10TA9 PO
[2021-05-26] MEDS ORDERED: BISACODYL 10 MG SUPP PR PRN
[2021-05-26] MEDS ORDERED: POLYETHYLENE GLYCOL 17 GM PACKET PO PRN
[2021-05-26] MEDS ORDERED: DOCUSATE 100 MG CAPSULE PO PRN
[2021-05-26] MEDS ORDERED: ONDANSETRON ODT 4 MG PO PRN
[2021-05-26] MEDS ORDERED: GLUCAGON 1 MG IM PRN (01:00)
[2021-05-26] MEDS ORDERED: DEXTROSE 50%, 50ML SYRINGE IVPush PRN (01:00)
[2021-05-26] MEDS ORDERED: DEXTROSE 4 GM TAB.CHEW PO PRN (01:00)
[2021-05-26] MEDS: DULOXETINE 30 MG CAPSULE.DR PO SCH ×3 (01:08→17:01)
[2021-05-26] MEDS: GABAPENTIN 400 MG CAPSULE PO SCH ×4 (01:08→21:03)
[2021-05-26] MEDS: DOXEPIN 100 MG CAPSULE PO SCH ×2 (01:08→21:03)
[2021-05-26 02:10] LABS: MICROSCOPIC NOT IND
[2021-05-26 02:56] VITALS: BP 122/74
[2021-05-26 03:41] VITALS: BP 122/74
[2021-05-26] MEDS: ACETAMINOPHEN 325 MG TABLET PO PRN ×2 (03:53→21:03)
[2021-05-26] MEDS: INSULIN LISPRO 100 UNITS/ML, PEN SQ-INSULIN SCH ×4 (07:00→20:52)
[2021-05-26 07:23] VITALS: BP 134/86
[2021-05-26] MEDS: NICOTINE 7 MG/24 HR PATCH.TD24 TD SCH (08:50)
[2021-05-26] MEDS ORDERED: CARIPRAZINE 3 MG CAP PO SCH ×2 (09:00→14:00)
[2021-05-26] MEDS ORDERED: SODIUM CHLORIDE FLUSH 10ML SYR IVF SCH (09:00)
[2021-05-26] MEDS: CARIPRAZINE 3 MG CAP PO SCH (17:00)
[2021-05-26 19:34] VITALS: BP 135/90
[2021-05-26] MEDS: INSULIN GLARGINE 100 UNITS/ML, PEN SQ-INSULIN SCH (21:02)
[2021-05-26] MEDS: AMOXICILLIN/CLAV 875-125MG TABLET PO SCH (21:03)
[2021-05-27] MEDS: INSULIN LISPRO 100 UNITS/ML, PEN SQ-INSULIN SCH ×4 (07:00→20:21)
[2021-05-27 07:53] VITALS: BP 142/91
[2021-05-27] MEDS: NICOTINE 7 MG/24 HR PATCH.TD24 TD SCH (08:43)
[2021-05-27] MEDS: AMOXICILLIN/CLAV 875-125MG TABLET PO SCH ×2 (08:43→20:15)
[2021-05-27] MEDS: GABAPENTIN 400 MG CAPSULE PO SCH ×3 (08:43→20:15)
[2021-05-27] MEDS: CARIPRAZINE 3 MG CAP PO SCH (08:44)
[2021-05-27] MEDS: DULOXETINE 30 MG CAPSULE.DR PO SCH (16:31)
[2021-05-27 19:27] VITALS: BP 144/75
[2021-05-27] MEDS: DOXEPIN 100 MG CAPSULE PO SCH (20:15)
[2021-05-27] MEDS: ACETAMINOPHEN 325 MG TABLET PO PRN (20:15)
[2021-05-27] MEDS: INSULIN GLARGINE 100 UNITS/ML, PEN SQ-INSULIN SCH (20:20)
[2021-05-28] MEDS: INSULIN LISPRO 100 UNITS/ML, PEN SQ-INSULIN SCH ×4 (07:00→20:38)
[2021-05-28 07:40] VITALS: BP 128/86
[2021-05-28] MEDS: GABAPENTIN 400 MG CAPSULE PO SCH ×3 (08:50→20:33)
[2021-05-28] MEDS: NICOTINE 7 MG/24 HR PATCH.TD24 TD SCH (08:50)
[2021-05-28] MEDS: CARIPRAZINE 3 MG CAP PO SCH (08:50)
[2021-05-28] MEDS: AMOXICILLIN/CLAV 875-125MG TABLET PO SCH ×2 (08:50→20:33)
[2021-05-28] MEDS: HYDROXYZINE PAMOATE 50MG CAP PO PRN (08:59)
[2021-05-28] MEDS: LORazepam 0.5MG TABLET PO PRN (15:48)
[2021-05-28] MEDS: DULOXETINE 30 MG CAPSULE.DR PO SCH (17:08)
[2021-05-28] MEDS ORDERED: COVID-19 VAC,AD26(JANSSEN)/PF 0.5ML IM-VACC ONE ×2 (17:30→18:30)
[2021-05-28 18:15] VITALS: BP 123/78
[2021-05-28] MEDS: DOXEPIN 100 MG CAPSULE PO SCH (20:33)
[2021-05-28] MEDS ORDERED: INSULIN GLARGINE 100 UNITS/ML, PEN SQ-INSULIN SCH (21:00)
[2021-05-29 07:18] VITALS: BP 130/83
[2021-05-29] MEDS: GABAPENTIN 400 MG CAPSULE PO SCH ×2 (07:41→15:56)
[2021-05-29] MEDS: AMOXICILLIN/CLAV 875-125MG TABLET PO SCH (07:41)
[2021-05-29] MEDS: INSULIN LISPRO 100 UNITS/ML, PEN SQ-INSULIN SCH ×3 (07:41→16:01)
[2021-05-29] MEDS: NICOTINE 7 MG/24 HR PATCH.TD24 TD SCH (07:42)
[2021-05-29] MEDS: CARIPRAZINE 3 MG CAP PO SCH (07:42)
[2021-05-29] MEDS ORDERED: MELOXICAM 15 MG TABLET PO SCH (09:00)
[2021-05-29] MEDS: LORazepam 0.5MG TABLET PO PRN (10:39)
[2021-05-29] MEDS: HYDROXYZINE PAMOATE 50MG CAP PO PRN (14:48)
[2021-05-29] MEDS: DULOXETINE 30 MG CAPSULE.DR PO SCH (15:57)
== END 2021-05-29 17:32 | disposition left against medical advice (07) | DRG 885 ==
LOC: 3E 05-26 00:14
PROVIDERS: ADMIT Psychiatry & Neurology Psychosomatic Medicine; ATTEND Psychiatry & Neurology Psychosomatic Medicine
DX: F25.1 Schizoaffective disorder, depressive type (principal); F15.20 Other stimulant dependence, uncomplicated; L03.113 Cellulitis of right upper limb; R45.851 Suicidal ideations; F41.9 Anxiety disorder, unspecified; F17.210 Nicotine dependence, cigarettes, uncomplicated; I10 Essential (primary) hypertension; J44.9 Chronic obstructive pulmonary disease, unspecified; E78.5 Hyperlipidemia, unspecified; Z53.29 Procedure and treatment not carried out because of patient's decision for other reasons; E87.6 Hypokalemia; F14.90 Cocaine use, unspecified, uncomplicated; W57.XXXA Bitten or stung by nonvenomous insect and other nonvenomous arthropods, initial encounter; Z82.3 Family history of stroke; Z59.0 Homelessness; Z82.49 Family history of ischemic heart disease and other diseases of the circulatory system; Z91.14 Patient's other noncompliance with medication regimen; Z91.5 Personal history of self-harm; Y92.89 Other specified places as the place of occurrence of the external cause
CPT/HCPCS: 71045; 81003; 82962; 91303; 93005; J1815

== ENCOUNTER 2021-07-12 09:13 | Inpatient (IN) | payer MEDICAID ==
[~2021-07-12] VITALS: Ht 177.8 cm; Wt 84.1 kg
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
[2021-07-12] MEDS ORDERED: DIPH,PERTUSS(ACELL),TET VAC/PF 0.5 ML IM-VACC ONE ×2 (09:47→10:00)
[2021-07-12] MEDS ORDERED: SODIUM CHLORIDE 0.9% 1,000ML IVBOLUS ONE (10:00)
[2021-07-12] MEDS ORDERED: SODIUM CHLORIDE FLUSH 10ML SYR IVF ONE (10:00)
--- NOTE | 2021-07-12 10:05 | NUR ---
PT RESTING ON GURNEY. NADN. ARNOLD.
--- NOTE | 2021-07-12 10:05 | NUR ---
BC X 2 DRAWN PRIOR TO START OF IV ABX.
[2021-07-12 10:09] LABS: BASOPHILS % (AUTO) 1 % (0-1); EOSINOPHILS % (AUTO) 1 % (1-7); LYMPHOCYTES % (AUTO) 13 % (22-44); MEAN CORPUSCULAR HEMOGLOBIN 29.4 pg (27.5-34.5); MEAN CORPUSCULAR HGB CONC 33.5 g/dL (33.2-36.2); MONOCYTES % (AUTO) 9 % (2-9); NEUTROPHILS % (AUTO) 76 % (42-75); PLATELET COUNT 327 x10^3/uL (130-400); RED BLOOD COUNT 4.82 x10^6/uL (4.38-5.82); RED CELL DISTRIBUTION WIDTH 14.7 % (9.4-14.8)
[2021-07-12 10:18] LABS: ANION GAP 8 mmol/L (5-15); CALCIUM 8.6 mg/dL (8.5-10.1); CHLORIDE 104 mmol/L (98-107)
[2021-07-12 10:22] LABS: ALANINE AMINOTRANSFERASE 38 U/L (12-78); ALKALINE PHOSPHATASE 97 U/L (45-117); BILIRUBIN,TOTAL 0.5 mg/dL (0.2-1.0); CREATININE 0.55 mg/dL (0.7-1.3); TOTAL PROTEIN 7.6 g/dL (6.4-8.2)
[2021-07-12] MEDS ORDERED: KETOROLAC 30 MG/1 ML ONE (10:29)
[2021-07-12] MEDS ORDERED: KETOROLAC 30 MG/1 ML IVPush ONE (10:30)
[2021-07-12] MEDS ORDERED: AMPICILLIN/SULBACTAM 3 GM in SODIUM CHLORIDE 0.9% 100 ML IV ONE (10:30)
[2021-07-12] MEDS ORDERED: OMNIPAQUE 350 MG/ML, 75ML BOTTLE ONE (10:44)
--- NOTE | 2021-07-12 11:08 | NUR ---
PT CHART REVIEWED AND PLACED FOR RECHECK.
--- NOTE | 2021-07-12 11:30 | NUR ---
PT RESTING ON GURNEY. NADN. ARNOLD.
--- NOTE | 2021-07-12 11:46 | NUR ---
YELLOW SLIP SENT TO PHARMACY FOR MEDS PER JAN.
[2021-07-12] MEDS ORDERED: VANCOMYCIN PER PHARMACY MC ONE (12:00)
[2021-07-12] MEDS ORDERED: VANCOMYCIN 2,000 MG in SODIUM CHLORIDE 0.9% 500 ML IV ONE (12:00)
[2021-07-12] MEDS ORDERED: ANTIDEPRESSANT (12:00)
--- NOTE | 2021-07-12 12:18 | NUR ---
PT RESTING ON GURNEY. NADN. ARNOLD.
[2021-07-12] MEDS: AMPICILLIN/SULBACTAM 3 GM in SODIUM CHLORIDE 0.9% 100 ML IV SCH ×3 (12:22→23:41)
[2021-07-12] MEDS ORDERED: LABETALOL 5MG/ML, 20ML IVPush PRN (12:30)
[2021-07-12] MEDS ORDERED: VANCOMYCIN PER PHARMACY MC PRN (12:30)
[2021-07-12] MEDS ORDERED: ONDANSETRON 2MG/ML, 2ML IVPush PRN (12:30)
[2021-07-12] MEDS ORDERED: DEXTROSE 4 GM TAB.CHEW PO PRN (12:30)
[2021-07-12] MEDS ORDERED: LACTATED RINGERS 1,000 ML IVBOLUS ONE (12:30)
[2021-07-12] MEDS ORDERED: ONDANSETRON ODT 4 MG PO PRN (12:30)
[2021-07-12] MEDS ORDERED: hydrALAzine 20 MG/ML, 1ML IVPush PRN (12:30)
[2021-07-12] MEDS ORDERED: DEXTROSE 50%, 50ML SYRINGE IVPush PRN (12:30)
[2021-07-12] MEDS ORDERED: GLUCAGON 1 MG IM PRN (12:30)
--- NOTE | 2021-07-12 13:07 | NUR ---
PT RESTING ON GURNEY. NADN. ARNOLD.
[2021-07-12 13:08] LABS: HCT (SEDRATE) 39.9 % (39.2-51.8)
[2021-07-12] MEDS: KETOROLAC 30 MG/1 ML IV SCH ×2 (13:17→19:07)
[2021-07-12] MEDS ORDERED: ENOXAPARIN 40 MG/0.4 ML ONE (13:23)
[2021-07-12] MEDS: ENOXAPARIN 40 MG/0.4 ML SQ SCH (13:30)
--- NOTE | 2021-07-12 14:23 | NUR ---
PT SLEEPING ON TALIA. NADN. ARNOLD.
--- NOTE | 2021-07-12 14:27 | NUR ---
REPORT GIVEN TO CLOVER ALEXANDER RN. ALL QUESTIONS ANSWERED. AWAITING PT TRANSPORT.
[2021-07-12] MEDS: INSULIN LISPRO 100 UNITS/ML, PEN SQ-INSULIN SCH ×3 (16:00→22:03)
[2021-07-12] MEDS: ACETAMINOPHEN 325 MG TABLET PO PRN (17:28)
[2021-07-12] MEDS: GABAPENTIN 400 MG CAPSULE PO SCH ×2 (17:28→21:04)
[2021-07-12] MEDS: LACTATED RINGERS 1,000 ML IV SCH (17:29)
[2021-07-12] MEDS ORDERED: PHARMACOKINETIC MONITORING MC PRN (18:00)
[2021-07-12] MEDS ORDERED: PHARMACOKINETIC CONSULTATION MC ONE (18:00)
[2021-07-12 18:58] VITALS: BP 130/60
[2021-07-12] MEDS ORDERED: [UNRECOGNIZED DRUG - OTHER] PO (19:18)
[2021-07-12] MEDS: SODIUM CHLORIDE FLUSH 10ML SYR IVF SCH (21:00)
[2021-07-12] MEDS: HYDROXYZINE PAMOATE 50MG CAP PO PRN (21:05)
[2021-07-12] MEDS: INSULIN GLARGINE 100 UNITS/ML, PEN SQ-INSULIN SCH (21:12)
[2021-07-13] MEDS: VANCOMYCIN 1,600 MG in SODIUM CHLORIDE 0.9% 250 ML IV SCH ×2 (00:26→20:32)
[2021-07-13 01:28] VITALS: BP 151/90
[2021-07-13] MEDS: KETOROLAC 30 MG/1 ML IV SCH ×4 (01:30→19:43)
[2021-07-13] MEDS: LACTATED RINGERS 1,000 ML IV SCH ×2 (03:29→16:13)
[2021-07-13] MEDS: AMPICILLIN/SULBACTAM 3 GM in SODIUM CHLORIDE 0.9% 100 ML IV SCH ×3 (05:34→19:43)
[2021-07-13 05:38] LABS: BASOPHILS % (AUTO) 1 % (0-1); EOSINOPHILS % (AUTO) 4 % (1-7); LYMPHOCYTES % (AUTO) 28 % (22-44); MEAN CORPUSCULAR HEMOGLOBIN 29.4 pg (27.5-34.5); MEAN CORPUSCULAR HGB CONC 33.3 g/dL (33.2-36.2); MEAN PLATELET VOLUME 7.3 fL (7.4-10.4); MONOCYTES % (AUTO) 9 % (2-9); NEUTROPHILS % (AUTO) 58 % (42-75); PLATELET COUNT 327 x10^3/uL (130-400); RED CELL DISTRIBUTION WIDTH 14.9 % (9.4-14.8)
[2021-07-13 05:40] LABS: CHLORIDE 108 mmol/L (98-107)
[2021-07-13 05:44] LABS: ANION GAP 5 mmol/L (5-15); CALCIUM 8.5 mg/dL (8.5-10.1)
[2021-07-13] MEDS: INSULIN LISPRO 100 UNITS/ML, PEN SQ-INSULIN SCH ×7 (07:45→21:00)
[2021-07-13 07:56] VITALS: BP 157/86
[2021-07-13] MEDS: SODIUM CHLORIDE FLUSH 10ML SYR IVF SCH ×2 (09:42→21:00)
[2021-07-13] MEDS: GABAPENTIN 400 MG CAPSULE PO SCH ×3 (09:42→20:32)
[2021-07-13] MEDS: ENOXAPARIN 40 MG/0.4 ML SQ SCH (11:48)
[2021-07-13] MEDS: ACETAMINOPHEN 325 MG TABLET PO PRN (11:48)
[2021-07-13 14:00] VITALS: BP 142/84
[2021-07-13 19:35] VITALS: BP 147/83
[2021-07-13] MEDS: HYDROXYZINE PAMOATE 50MG CAP PO PRN (19:43)
[2021-07-13] MEDS: INSULIN GLARGINE 100 UNITS/ML, PEN SQ-INSULIN SCH (20:33)
[2021-07-14 01:06] VITALS: BP 144/87
[2021-07-14] MEDS: KETOROLAC 30 MG/1 ML IV SCH ×4 (01:11→19:17)
[2021-07-14] MEDS: AMPICILLIN/SULBACTAM 3 GM in SODIUM CHLORIDE 0.9% 100 ML IV SCH ×2 (01:12→08:12)
[2021-07-14] MEDS: LACTATED RINGERS 1,000 ML IV SCH (01:12)
[2021-07-14] MEDS: ACETAMINOPHEN 325 MG TABLET PO PRN (05:11)
[2021-07-14] MEDS: HYDROXYZINE PAMOATE 50MG CAP PO PRN ×2 (06:08→17:41)
[2021-07-14] MEDS: INSULIN LISPRO 100 UNITS/ML, PEN SQ-INSULIN SCH ×7 (07:00→21:11)
[2021-07-14 07:54] VITALS: BP 149/84
[2021-07-14] MEDS: GABAPENTIN 400 MG CAPSULE PO SCH ×3 (08:11→21:10)
[2021-07-14] MEDS: SODIUM CHLORIDE FLUSH 10ML SYR IVF SCH ×2 (08:12→19:17)
[2021-07-14] MEDS ORDERED: SULFAMETH./TRIMETHOPRIM DS 800MG/160MG TABLET PO ONE (09:57)
[2021-07-14] MEDS: ENOXAPARIN 40 MG/0.4 ML SQ SCH (12:28)
[2021-07-14 14:15] VITALS: BP 148/87
[2021-07-14 19:19] VITALS: BP 142/83
[2021-07-14] MEDS ORDERED: CARIPRAZINE 3 MG CAP PO SCH (21:00)
[2021-07-14] MEDS: INSULIN GLARGINE 100 UNITS/ML, PEN SQ-INSULIN SCH (21:10)
[2021-07-14] MEDS: SULFAMETH./TRIMETHOPRIM DS 800MG/160MG TABLET PO SCH (21:10)
[2021-07-15] MEDS: KETOROLAC 30 MG/1 ML IV SCH ×3 (01:10→13:35)
[2021-07-15 01:13] VITALS: BP 132/87
[2021-07-15 06:51] VITALS: BP 138/91
[2021-07-15] MEDS: INSULIN LISPRO 100 UNITS/ML, PEN SQ-INSULIN SCH ×4 (07:00→12:19)
[2021-07-15] MEDS: HYDROXYZINE PAMOATE 50MG CAP PO PRN (07:48)
[2021-07-15] MEDS: SODIUM CHLORIDE FLUSH 10ML SYR IVF SCH (09:20)
[2021-07-15] MEDS: SULFAMETH./TRIMETHOPRIM DS 800MG/160MG TABLET PO SCH (09:20)
[2021-07-15] MEDS: GABAPENTIN 400 MG CAPSULE PO SCH (09:20)
[2021-07-15] MEDS ORDERED: SULF-23 PO (10:59)
[2021-07-15] MEDS: ENOXAPARIN 40 MG/0.4 ML SQ SCH (12:21)
[2021-07-15] MEDS: ACETAMINOPHEN 325 MG TABLET PO PRN (13:39)
[2021-07-15] MEDS ORDERED: IBUP-1222 PO (14:13)
== END 2021-07-15 15:00 | disposition home or self-care (01) | DRG 872 ==
LOC: ED 09:23 → SUATTDRO 11:56 → 4NW 12:06
PROVIDERS: ADMIT Family Medicine; ATTEND Family Medicine
DX: A41.9 Sepsis, unspecified organism (principal); L03.211 Cellulitis of face; L03.213 Periorbital cellulitis; E11.40 Type 2 diabetes mellitus with diabetic neuropathy, unspecified; F15.10 Other stimulant abuse, uncomplicated; F25.9 Schizoaffective disorder, unspecified; F41.9 Anxiety disorder, unspecified; Z66 Do not resuscitate; G47.00 Insomnia, unspecified; I10 Essential (primary) hypertension; B95.62 Methicillin resistant Staphylococcus aureus infection as the cause of diseases classified elsewhere; J44.9 Chronic obstructive pulmonary disease, unspecified; L02.92 Furuncle, unspecified; Z79.4 Long term (current) use of insulin; Z59.0 Homelessness
CPT/HCPCS: 36415; 70487; 80048; 80053; 82962; 83605; 85025; 85651; 87040; 87070; 87077; 87186; 87205; 90471; 90715; 96374; 96375; 99285; G0378; J0295; J1650; J1885; J2405; J3370; Q9967; J1815; J7030; J7040; J7050; J7120